=== PATIENT | male | born 1985 | race Caucasian/White ===

== ENCOUNTER 2021-09-01 05:26 | Emergency (ER) | payer SELFPAY ==
[~2021-09-01] VITALS: Ht 182.9 cm; Wt 90.7 kg
[2021-09-01 05:27] VITALS: BP 137/80
[2021-09-01] MEDS ORDERED: ONDANSETRON 4 MG ODT ONE (05:48)
[2021-09-01] MEDS ORDERED: ONDANSETRON 4 MG TAB PO ONE (05:50)
[2021-09-01 06:15] VITALS: BP 137/80
== END 2021-09-01 06:15 | disposition home or self-care (01) ==
LOC: MED 05:26
DX: Z02.89 Encounter for other administrative examinations (principal); Z98.890 Other specified postprocedural states; V89.2XXA Person injured in unspecified motor-vehicle accident, traffic, initial encounter; Y93.89 Activity, other specified; Y92.89 Other specified places as the place of occurrence of the external cause; Y99.8 Other external cause status
CPT/HCPCS: 99283; Q0162